=== PATIENT | female | born 1955 | race Caucasian/White ===

== ENCOUNTER 2016-09-11 21:10 | Inpatient (IN) | payer MEDICARE, OTHER ==
[~2016-09-11] VITALS: Ht 170.2 cm; Wt 79.4 kg
[~2016-09-11 21:10] MED LIST: IBUP800T23 PO
[2016-09-11 21:16] VITALS: BP 122/66; PULSE 90; RESP 22; TEMP 98.2; O2SAT 97
[2016-09-11 21:23] VITALS: BP 122/66; PULSE 82; RESP 22; TEMP 98.2; O2SAT 99
--- NOTE | 2016-09-11 21:26 | PD ---
HPI Chief Complaint: Hip Injury Time Seen by Provider: 21:21 Travel History International Travel<30 days: No Contact w/Intl Traveler<30days: No Traveled to known affect area: No History of Present Illness HPI The patient is a 60 year old female who presents to the [facility] emergency department with a history of reportedly slipping and falling on would laminate walking out of her office prior to arrival. The patient reports that she landed on her left leg and heard a pop. She reports that she was not able to get up. She reports the pain is a 10 out of 10 in severity. The patient arrives by ambulance services. No IV access was able to be obtained prior to arrival. The patient reports having an allergy to morphine. The patient denies hitting her head or losing consciousness. She denies having any headache or neck pain currently. She denies having any numbness or tingling to her extremities. She reports that her only pain is in the left leg. She reports that the left hip down to the knee are painful. She denies any prior surgery on her left hip or left femur. On review of systems, the patient denies any recent fevers, cough, congestion, neck pain, chest pain, shortness of breath, abdominal pain, vomiting, diarrhea, urinary symptoms, or neurologic symptoms. [facility] Past Medical History Narrative Medical The patient's past medical history is significant for pelvic cancer status post complete hysterectomy and radiation therapy that she completed in 2016, history of COPD. Respiratory: Yes (COPD, restrictive lung disease) Past Surgical History Narrative Surgical The patient's past surgical history is significant for 2 prior C-sections, cholecystectomy, appendectomy, vaginal surgery related to her pelvic cancer, and complete hysterectomy. Hysterectomy: Yes Social History Alcohol Use: No Tobacco Use: No Substance Use: No Allergies-Medications (Allergen,Severity, Reaction): Coded Allergies: Morphine (Verified Allergy, Severe, cardiac arrest, 11/25/15) Penicillin (Verified Allergy, Intermediate, asthma attack, hives, 11/25/15) Aspirin (Verified Allergy, Mild, hives, 11/25/15) Iodine (Verified Allergy, Mild, rash, 11/25/15) Reported Meds & Prescriptions Reported Meds & Active Scripts Active Reported [Vitamelts Multi] 2 Tab SL BID Montelukast (Montelukast Sodium) 5 Mg Chew 5 Mg CHEW HS Duoneb (Ipratropium-Albuterol Neb) 0.5-2.5 Mg/3 Ml Neb 1 Nebule INH Q4HR NEB PRN Drisdol (Ergocalciferol) 50,000 Unit Cap 50,000 Units PO Q7D ON SUNDAYS Cyanocobalamin Inj (Cyanocobalamin) 1,000 Mcg/Ml Inj 1,000 Mcg SQ Q30D Calcium Gummies ([place]uf[place]oo-Jndrindpbz-Ybrhzhl D) 250-100-500 Mg-Unit Chew 2 Ea CHEW HS Review of Systems Except as stated in HPI: all other systems reviewed are Neg General / Constitutional: No: Fever Eyes: No: Visual changes HENT: No: Headaches Cardiovascular: No: Chest Pain or Discomfort Respiratory: No: Shortness of Breath Gastrointestinal: No: Nausea, Vomiting, Diarrhea, Abdominal Pain Genitourinary: No: Dysuria Musculoskeletal: Positive: Arthralgias, Limited ROM, Pain Skin: No Rash Neurologic: No: Weakness, Focal Abnormalities, Headache, Change in Mentation, Slurred Speech, Sensory Disturbance Psychiatric: No: Depression Endocrine: No: Polydipsia Hematologic/Lymphatic: No: Easy Bruising Physical Exam Narrative General: The patient is a well-developed well-nourished female, uncomfortable appearing on arrival, intermittently holding the left leg/left hip. Head and Neck exam: Head is normocephalic atraumatic. Eyes: EOMI, pupils are equal round and reactive to light. Nose: Midline septum with pink mucous membranes Mouth: Dentition unremarkable. Moist mucus membranes. Posterior oropharynx is not erythematous. No tonsillar hypertrophy. Uvula midline. Airway patent. Neck: No palpable lymphadenopathy. No nuchal rigidity. No thyromegaly. Cardiovascular: Regular rate and rhythm without murmurs, gallops, or rubs. Lungs: Clear to auscultation bilaterally. No wheezes, rhonchi, or rales. Abdomen: Soft, without tenderness to palpation in all 4 quadrants of the abdomen. No guarding, rebound, or rigidity. Normal bowel sounds are audible. No tenderness on palpation of McBurney's point. Extremities: No clubbing, cyanosis, or edema. 2+ pulses in all 4 extremities. No calf tenderness on palpation bilaterally. The area of interest is the left hip, left femur area. The patient has her left hip slightly internally rotated. It is difficult to identify shortening of the patient's right leg is flexed to take pressure off of the left leg. The patient has tenderness on palpation along the left groin. The patient has no tenderness on palpation of the knee, tib-fib, or left ankle. The patient reports that the pain is radiating down from the left hip into the left femur. Back: No costovertebral angle tenderness to palpation. Neurologic Exam: Grossly nonfocal. Skin Exam: No rash noted. Intact skin that is warm and dry. Data Data Last Documented VS Vital Signs Date Time Temp Pulse Resp B/P Pulse Ox O2 Delivery O2 Flow Rate FiO2 09/11/16 21:29 99 2 09/11/16 21:23 98.2 82 22 122/66 Room Air Orders Femur (Ap & Lat/2vws) (09/11/16 21:18) Hip, Uni(Ap&Lat) W Ap Pelvis (09/11/16 21:18) Electrocardiogram (09/11/16 21:18) Complete Blood Count With Diff (09/11/16 21:18) Comprehensive Metabolic Panel (09/11/16 21:18) Prothrombin Time / Inr (Pt) (09/11/16 21:18) Act Partial Throm Time (Ptt) (09/11/16 21:18) Urinalysis - C+S If Indicated (09/11/16 21:18) Chest, Single Ap (09/11/16 21:18) Iv Access Insert/Monitor (09/11/16 21:18) Ecg Monitoring (09/11/16 21:18) Oximetry (09/11/16 21:18) Urinary Catheter Insert/Apply (09/11/16 21:18) Type And Screen (09/11/16 21:18) Sodium Chlorid 0.9% 500 Ml Inj (Ns 500 M (09/11/16 21:45) Hydromorphone Pf Inj (Dilaudid Pf Inj) (09/11/16 21:45) Ondansetron Inj (Zofran Inj) (09/11/16 21:45) Admit To Inpatient (09/11/16 ) Vital Signs (Adult) Q4H (09/11/16 23:03) Activity Bed Rest (09/11/16 23:03) Diet Npo (09/12/16 Breakfast) Sodium Chloride 0.9% Flush (Ns Flush) (09/11/16 23:15) Sodium Chloride 0.9% Flush (Ns Flush) (09/12/16 09:00) Basic Metabolic Panel (Bmp) (09/12/16 06:00) Complete Blood Count With Diff (09/12/16 06:00) Case Management Consult (09/11/16 23:03) Naloxone Inj (Narcan Inj) (09/11/16 23:15) Inpatient Certification (09/11/16 ) Electrocardiogram (09/11/16 23:04) B-Type Natriuretic Peptide (09/11/16 23:04) Hydromorphone Pf Inj (Dilaudid Pf Inj) (09/11/16 23:15) Admit Order (Ed Use Only) (09/11/16 23:05) Consult Orthopedic (09/11/16 ) Ckmb (Isoenzyme) Profile (09/11/16 22:00) Troponin I (09/11/16 22:00) CKMB (09/11/16 22:00) CKMB% (09/11/16 22:00) Labs Laboratory Tests Test 09/11/16 09/11/16 22:00 22:10 Prothrombin Time 10.2 SEC Prothromb Time International 0.9 RATIO Ratio Activated Partial 24.9 SEC Thromboplast Time Sodium Level 144 MEQ/L Potassium Level 4.3 MEQ/L Chloride Level 109 MEQ/L Carbon Dioxide Level 30.1 MEQ/L Blood Urea Nitrogen 28 MG/DL Creatinine 1.04 MG/DL Random Glucose 97 MG/DL Calcium Level 8.4 MG/DL Total Bilirubin 0.2 MG/DL Aspartate Amino Transf 26 U/L (AST/SGOT) Alanine Aminotransferase 25 U/L (ALT/SGPT) Alkaline Phosphatase 52 U/L Total Protein 6.7 GM/DL Albumin 3.5 GM/DL Anion Gap 5 MEQ/L Estimat Glomerular Filtration 54 ML/MIN Rate Total Creatine Kinase 119 U/L Creatine Kinase MB 2.4 NG/ML Troponin I LESS THAN 0.02 NG/ML Blood Type AB POSITIVE Antibody Screen NEGATIVE Blood Bank Comment Urine Color YELLOW Urine Turbidity CLEAR Urine pH 5.5 Urine Specific [place] 1.025 Urine Protein NEG mg/dL Urine Glucose (UA) NEG mg/dL Urine Ketones NEG mg/dL Urine Occult Blood NEG Urine Nitrite NEG Urine Bilirubin NEG Urine Urobilinogen LESS THAN 2.0 MG/DL Urine Leukocyte Esterase NEG Urine RBC 1 /hpf Urine WBC LESS THAN 1 /hpf Urine Bacteria RARE /hpf Urine Mucus FEW /lpf Microscopic Urinalysis Comment CULT NOT INDICATED MDM Medical Decision Making Medical Screen Exam Complete: Yes Emergency Medical Condition: Yes Medical Record Reviewed: Yes Interpretation(s) Last Impressions Hip and Pelvis X-Ray 09/11/162117 Signed Impressions: Service Date/Time: Sunday, September 11, 2016 21:32 - CONCLUSION: Mildly displaced, comminuted and impacted subcapital fracture of the left femoral neck. Ravinder Boone MD Femur X-Ray 09/11/162117 Signed Impressions: Service Date/Time: Sunday, September 11, 2016 21:36 - CONCLUSION: Subcapital fracture of the left femur with mild impaction and lateral displacement. The remainder of the left femur is intact. Ravinder Boone MD Chest X-Ray 09/11/162117 Signed Impressions: Service Date/Time: Sunday, September 11, 2016 21:32 - CONCLUSION: No acute cardiopulmonary disease demonstrated. Ravinder Boone MD Differential Diagnosis Left hip fracture, versus left hip dislocation, versus femur fracture, versus pelvis fracture Narrative Course During the course of the patients emergency department visit, the patients history, examination, and differential diagnosis were reviewed with the patient. The patient had IV access obtained and blood work sent for analysis. The patient was placed on a court recording monitor with oximetry and blood pressure monitoring. An EKG was ordered. A left hip x-ray, pelvis x-ray, left femur x- ray was ordered along with a chest x-ray in anticipation for the patient being cleared for surgery. The patient was typed and screened for blood. The patient had an EKG done on arrival that shows a sinus rhythm heart rate is 76, no acute ST segment elevation or depression, T waves inverted in V1. The patient was initially provided normal saline IV fluids, hydromorphone IV for pain and she reports that she has been able to tolerate this previously, Zofran 4 mg IV for nausea. The patients laboratory studies were reviewed and remarkable for cbc that is unremarkable, cmp with a bun 28, cr 1.04, cardiac enzymes wnl, bun 24. pt 10.2, ptt 24.9, urinalysis unremarkable Radiology studies were reviewed and remarkable for left subcapital femoral neck fx, chest xray unremarkable. While the patient was being observed in the emergency department and awaiting initial laboratory studies the patient acutely complained of chest pain/ pressure. An EKG was done, cardiac enzymes were sent. The patient's repeat EKG shows a sinus rhythm with a sinus arrhythmia heart rate of [address] segment elevation or depression, T waves inverted in V1. The patients results were discussed with the patient, including the plan of care. I explained that further testing and/ or monitoring is indicated based on the patients history, examination, and/ or laboratory findings. Therefore, I recommended admission for additional evaluation. The patient expressed understanding and was agreeable with this plan. The patient was admitted to the hospital in stable condition and sent to a bed under the care of the [facility]. Physician Communication Physician Communication The patient's case was discussed with Chava, the physician department assistant for Dr. Palomino who did agree to see the patient in consultation. The patient's case was discussed with Dr. Red who did agree to admit the patient for further evaluation and treatment at this time. Diagnosis Primary Impression: Closed left hip fracture Qualified Code: S72.002A - Closed left hip fracture, initial encounter Admitting Information Admitting Physician Requests: Admit Scripts Rivaroxaban (Xarelto)10 Mg Tab10 Mg PO DAILY #14 TAB Ref 0 Prov:Zay Antoine Jr. 09/12/16 Calcium Carbonate-Cholecalciferol (Calcium 600+D)600-800 Mg-Unit Tab1 Tab PO BID #60 TAB Ref 2 Prov:Zay Antoine Jr. 09/12/16 Ergocalciferol 50,000 Unit Cap50,000 Units PO Q7D #7 CAP Ref 0 Prov:Zay Antoine Jr. 09/12/16 Hydrocodone-Acetaminophen ([place])7.5-325 mg Tab1 Tab PO Q4H PRN (PAIN) #60 TAB Ref 0 Prov:Zay Antoine Jr. 09/12/16 Alee Lowe MD September 11, 2016 21:26
[2016-09-11 21:29] VITALS: O2SAT 99
[2016-09-11] MEDS ORDERED: ONDANSETRON HCL 4 MG/2 ML VIAL IV PUSH ONE (21:45)
[2016-09-11] MEDS ORDERED: HYDROmorphone HCL PF 1 MG/ML VIAL IV PUSH ONE (21:45)
[2016-09-11] MEDS ORDERED: SODIUM CHLORID 0.9% 500 ML INJ 500 ML IV ONE (21:45)
--- NOTE | 2016-09-11 22:01 | RADRPT ---
EXAM DATE/TIME: 09/11/2016 21:32 [facility] COMPARISON: No previous studies available for comparison. INDICATIONS : Chest pain after fall. MEDICAL HISTORY : None. SURGICAL HISTORY : Appendectomy. Cholecystectomy. ENCOUNTER: Initial ACUITY: 1 day PAIN SCORE: 10/10 LOCATION: Bilateral chest. FINDINGS: A single view of the chest demonstrates the lungs to be symmetrically aerated without evidence of mas s, infiltrate or effusion. The cardiomediastinal contours are unremarkable. Osseous structures are intact. Age-indeterminate but presumably chronic elevation and/or eventration seen of the right hemidiaphragm . Apparent surgery of the stomach and previous cholecystectomy. CONCLUSION: No acute cardiopulmonary disease demonstrated. Ravinder Boone MD on September 11, 2016 at 21:58 Board Certified Radiologist. This report was verified electronically.
--- NOTE | 2016-09-11 22:02 | RADRPT ---
EXAM DATE/TIME: 09/11/2016 21:32 [facility] COMPARISON: No previous studies available for comparison. INDICATIONS : Left hip pain after fall. MEDICAL HISTORY : None. SURGICAL HISTORY : None. ENCOUNTER: Initial ACUITY: 1 day PAIN SCORE: 10/10 LOCATION: Left hip. FINDINGS: There is a mildly comminuted and mildly impacted subcapital fracture of the left femur. Femoral head remains intact. No subluxation. The bony pelvis is intact. CONCLUSION: Mildly displaced, comminuted and impacted subcapital fracture of the left femoral neck. Ravinder Boone MD on September 11, 2016 at 21:59 Board Certified Radiologist. This report was verified electronically.
--- NOTE | 2016-09-11 22:03 | RADRPT ---
EXAM DATE/TIME: 09/11/2016 21:36 [facility] COMPARISON: No previous studies available for comparison. INDICATIONS : Left femur pain after fall. MEDICAL HISTORY : None. SURGICAL HISTORY : None. ENCOUNTER: Initial ACUITY: 1 day PAIN SCORE: 10/10 LOCATION: Left proximal femur. FINDINGS: There is a left femoral neck fracture with mild impaction and lateral displacement. The femoral head is intact. The rest of the femur is intact. CONCLUSION: Subcapital fracture of the left femur with mild impaction and lateral displacement. The remainder of the left femur is intact. Ravinder Boone MD on September 11, 2016 at 22:01 Board Certified Radiologist. This report was verified electronically.
[2016-09-11] MEDS ORDERED: CYAN1000P SQ (22:43)
[2016-09-11] MEDS ORDERED: IPRASOL INH (22:43)
[2016-09-11] MEDS ORDERED: DRIS50002 PO (22:43)
[2016-09-11] MEDS ORDERED: CALCCHW23 CHEW (22:43)
[2016-09-11] MEDS ORDERED: [UNRECOGNIZED DRUG - CODE] SL (22:43)
[2016-09-11] MEDS ORDERED: MONT10TA4 PO (22:43)
[2016-09-11] MEDS ORDERED: [UNRECOGNIZED DRUG - OTHER] SL (22:49)
[2016-09-11] MEDS ORDERED: MONT5CHW5 CHEW (22:49)
[2016-09-11 23:07] LABS: ALKALINE PHOSPHATASE 52 U/L (45-117); APTT (PATIENT) 24.9 SEC (24.3-30.1); INTERNATIONAL NORMALIZED RATIO 0.9 RATIO; PROTHROMBIN TIME - PATIENT 10.2 SEC (9.8-11.6); TOTAL BILIRUBIN ADULT 0.2 MG/DL (0.2-1.0)
[2016-09-11 23:10] LABS: ALT (GPT) 25 U/L (10-53); ANION GAP 5 MEQ/L (5-15); AST (GOT) 26 U/L (15-37); BICARBONATE 30.1 MEQ/L (21.0-32.0); BLOOD UREA NITROGEN 28 MG/DL (7-18); CHLORIDE 109 MEQ/L (98-107); GLOMERULAR FILTRATION RATE 54 ML/MIN (>89); POTASSIUM 4.3 MEQ/L (3.5-5.1); SODIUM (NA) 144 MEQ/L (136-145)
[2016-09-11] MEDS ORDERED: NALOXONE HCL 0.4 MG/ML AMP IV PRN (23:15)
[2016-09-11] MEDS ORDERED: SODIUM CHLORIDE 0.9% FLUSH 10 ML FLUSH IV FLUSH PRN (23:15)
[2016-09-11 23:33] VITALS: BP 136/67; PULSE 67; RESP 16; O2SAT 99
[2016-09-11 23:35] LABS: AUTOMATED NEUTROPHIL # 6.7 TH/MM3 (1.8-7.7); BASOPHIL % 0.3 % (0.0-2.0); EOSINOPHIL # 0.1 TH/MM3 (0-0.4); EOSINOPHIL % 0.7 % (0.0-4.0); HEMATOCRIT 36.5 % (35.0-46.0); HEMO FLAGS DIFF FINAL; LYMPH % 18.8 % (9.0-44.0); LYMPHOCYTE # 1.7 TH/MM3 (1.0-4.8); MEAN CELL VOLUME 83.3 FL (80.0-100.0); MEAN CORPUSCULAR HEMOGLOBIN 27.8 PG (27.0-34.0); MEAN CORPUSCULAR HGB CONC 33.4 % (32.0-36.0); MONO % 4.2 % (0.0-8.0); PLATELET COUNT 219 TH/MM3 (150-450); RED BLOOD COUNT 4.39 MIL/MM3 (4.00-5.30); RED CELL DISTRIBUTION WIDTH 13.5 % (11.6-17.2); WHITE BLOOD COUNT 8.9 TH/MM3 (4.0-11.0)
[2016-09-11 23:49] LABS: CREATINE KINASE 119 U/L (26-192)
--- NOTE | 2016-09-11 23:49 | HHI.HP ---
HPI Service [facility] Primary Care Physician Maged Perkins MD Admission Diagnosis Left hip subcapital femoral neck fx s/p fall Diagnoses: Chief Complaint: Fell down Travel History International Travel<30 Days: No Contact w/Intl Traveler <30 Da: No Traveled to Known Affected Are: No History of Present Illness History and patient, ER physician for medication, and review of medical records. Patient reported that she was walking on a limited floor and fell onto her left hip. She denies any premonitory symptoms prior to the fall such as chest pain/ palpitations/dizziness/focal weakness. She denies hitting her head. Denies loss of consciousness. Denies being on blood thinners. She does not remember the last time she had a fall. She usually doesn't fall at all. In the emergency room, patient's imaging studies revealed left femoral neck fracture. Patient denies any recent fevers/nausea/vomiting/diarrhea. Denies any hematemesis/hematochezia/melena/hematuria. She denies any significant medical history apart from COPD/restrictive lung disease and history of uterine cancer which has become recurrent with ongoing treatment. Has been in remission for past 1 year. 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 With surgical removal in 2010 and 2014, radiation therapy. Last dose of radiation was July 2015 Past Surgical History Hysterectomy with bilateral oophorectomy Cholecystectomy Appendectomy 2 Surgical removal of recurrent uterine/pelvic cancerin 2010 and 2014 Reported Medications Patient's medications listed on EMRreviewed. 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 Allergies: Coded Allergies: Morphine (Verified Allergy, Severe, cardiac arrest, 11/25/15) Penicillin (Verified Allergy, Intermediate, asthma attack, hives, 11/25/15) Aspirin (Verified Allergy, Mild, hives, 11/25/15) Iodine (Verified Allergy, Mild, rash, 11/25/15) Family History Father with history of CHF Social History Denies smoking/alcohol abuse/drug abuse Physical Exam Vital Signs Vital Signs Date Time Temp Pulse Resp B/P Pulse Ox O2 Delivery O2 Flow Rate FiO2 09/11/16 23:33 67 16 136/67 99 Nasal Cannula 2 09/11/16 21:29 99 2 09/11/16 21:23 98.2 82 22 122/66 99 Room Air 2 09/11/16 21:23 99 Nasal Cannula 2 09/11/16 21:16 98.2 90 22 122/66 97 Physical Exam GENERAL: This is a well-nourished, well-developed patient, in mild distress from pain SKIN: No rashes, ecchymoses or lesions. Cool and dry. HEAD: Atraumatic. Normocephalic. No temporal or scalp tenderness. EYES: . No scleral icterus. No injection or drainage. ENT: Nose without bleeding, purulent drainage or septal hematoma. Airway patent. NECK: Trachea midline. No JVD CARDIOVASCULAR: Regular rate and rhythm without murmurs, gallops, or rubs. RESPIRATORY: Clear to auscultation. Breath sounds equal bilaterally. No wheezes , rales, or rhonchi. GASTROINTESTINAL: Abdomen soft, non-tender, nondistended. No guarding. MUSCULOSKELETAL: Extremities without clubbing, cyanosis, or edema. No calf tenderness. Left lower extremity in a flexed position with some internal rotation. Good peripheral pulses at dorsalis pedis. NEUROLOGICAL: Awake and alert. Normal speech. Laboratory Laboratory Tests Test 09/11/16 09/11/16 22:00 23:20 Prothrombin Time 10.2 Prothromb Time International 0.9 Ratio Activated Partial 24.9 Thromboplast Time Sodium Level 144 Potassium Level 4.3 Chloride Level 109 Carbon Dioxide Level 30.1 Anion Gap 5 Blood Urea Nitrogen 28 Creatinine 1.04 Estimat Glomerular Filtration 54 Rate Random Glucose 97 Calcium Level 8.4 Total Bilirubin 0.2 Aspartate Amino Transf 26 (AST/SGOT) Alanine Aminotransferase 25 (ALT/SGPT) Alkaline Phosphatase 52 Total Protein 6.7 Albumin 3.5 White Blood Count 8.9 Red Blood Count 4.39 Hemoglobin 12.2 Hematocrit 36.5 Mean Corpuscular Volume 83.3 Mean Corpuscular Hemoglobin 27.8 Mean Corpuscular Hemoglobin 33.4 Concent Red Cell Distribution Width 13.5 Platelet Count 219 Mean Platelet Volume 8.0 Neutrophils (%) (Auto) 76.0 Lymphocytes (%) (Auto) 18.8 Monocytes (%) (Auto) 4.2 Eosinophils (%) (Auto) 0.7 Basophils (%) (Auto) 0.3 Neutrophils # (Auto) 6.7 Lymphocytes # (Auto) 1.7 Monocytes # (Auto) 0.4 Eosinophils # (Auto) 0.1 Basophils # (Auto) 0.0 CBC Comment DIFF FINAL Differential Comment Result Diagram: 09/11/160 09/11/162199 Imaging Last 48 hours Impressions Hip and Pelvis X-Ray 09/11/162117 Signed Impressions: Service Date/Time: Sunday, September 11, 2016 21:32 - CONCLUSION: Mildly displaced, comminuted and impacted subcapital fracture of the left femoral neck. Ravinder Boone MD Femur X-Ray 09/11/162117 Signed Impressions: Service Date/Time: Sunday, September 11, 2016 21:36 - CONCLUSION: Subcapital fracture of the left femur with mild impaction and lateral displacement. The remainder of the left femur is intact. Ravinder Boone MD Chest X-Ray 09/11/162117 Signed Impressions: Service Date/Time: Sunday, September 11, 2016 21:32 - CONCLUSION: No acute cardiopulmonary disease demonstrated. Ravinder Boone MD Assessment and Plan Problem List: (1) Closed left hip fracture ICD Code: S72.002A Status: Acute Assessment and Plan Impression: Status post fall Left subcapital femoral neck fracture secondary to fall Renal insufficiencyGFR 54. Acute versus chronic. 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 With surgical removal in 2010 and 2014, radiation therapy. Last dose of radiation was July 2015 Plan: Patient's case was discussed with orthopedics PA on-call by ER physician. Nothing by mouth past midnight. Pain control. Resume home meds. DVT prophylaxisto start postoperatively with chemical prophylaxis. Discussed Condition With Patient, her son at the bedside, ER physician Physician Certification 2 Midnight Certification Type: Admission for Inpatient Services Order for Inpatient Services The services are ordered in accordance with Medicare regulations or non- Medicare payer requirements, as applicable. In the case of services not specified as inpatient-only, they are appropriately provided as inpatient services in accordance with the 2-midnight benchmark. Estimated LOS (days): 3 days is the estimated time the patient will need to remain in the hospital, assuming treatment plan goals are met and no additional complications. Post-Hospital Plan: Not yet determined Problem Qualifiers (1) Closed left hip fracture: Qualified Code: S72.002A - Closed left hip fracture, initial encounter Claudio Red MD September 11, 2016 23:49
[2016-09-12] VITALS (7 sets, daily range): BP systolic 100–124; BP diastolic 55–74; PULSE 63–83; RESP 16–17; TEMP 95.7–98.5; O2SAT 92–98
[2016-09-12 00:02] LABS: CKMB 2.4 NG/ML (0.5-3.6)
[2016-09-12] MEDS ORDERED: CYCLOBENZAPRINE HCL 10 MG TAB PO PRN (00:30)
[2016-09-12] MEDS ORDERED: RESP: ALBUTEROL 2.5 MG/IPRATROPIUM 0.5 MG NEB (PRN) NEB (00:45)
[2016-09-12] MEDS: SODIUM CHLOR 0.9% 1000 ML INJ 1,000 ML IV SCH ×2 (01:00→12:14)
[2016-09-12] MEDS: HYDROmorphone HCL PF 1 MG/ML VIAL IV PUSH PRN ×2 (01:11→06:03)
[2016-09-12 01:16] LABS: BACTERIA, URINE RARE /hpf; BLOOD, URINE NEG (NEG); COMMENT (UR) CULT NOT INDICATED; CULTURE IF INDICATED CULT NOT INDICATED; GLUCOSE,URINE NEG (NEG); KETONE, URINE NEG (NEG); MUCUS URINE FEW /lpf (OCC); NITRITE,URINE NEG (NEG); PH, URINE 5.5 (5.0-8.5); URINE COLOR YELLOW (YELLW/STRAW)
--- NOTE | 2016-09-12 06:43 | PD.ORT.PN ---
Subjective Subjective Remarks s/p fall at home left hip pain Objective Vitals Vital Signs Date Time Temp Pulse Resp B/P Pulse Ox O2 Delivery O2 Flow Rate FiO2 09/12/16 03:00 98.5 69 104/70 96 09/12/16 00:36 98.1 83 112/67 98 09/11/16 23:33 67 16 136/67 99 Nasal Cannula 2 09/11/16 21:29 99 2 09/11/16 21:23 98.2 82 22 122/66 99 Room Air 2 09/11/16 21:23 99 Nasal Cannula 2 09/11/16 21:16 98.2 90 22 122/66 97 I/O 09/11/16 09/11/16 09/11/16 09/12/16 09/12/16 09/12/16 07:00 15:00 23:00 07:00 15:00 23:00 Intake Total 504 ml Output Total 1150 ml Balance -646 ml Intake Oral 0 ml IV Total 504 ml Output Urine Total 1150 ml Result Diagram: 09/11/16 2320 09/11/16 2200 Other Results Laboratory Tests Test 09/11/16 22:00 Prothrombin Time 10.2 SEC (9.8-11.6) Prothromb Time International 0.9 RATIO Ratio Imaging Last 24 hours Impressions Hip and Pelvis X-Ray 09/11/162117 Signed Impressions: Service Date/Time: Sunday, September 11, 2016 21:32 - CONCLUSION: Mildly displaced, comminuted and impacted subcapital fracture of the left femoral neck. Ravinder Boone MD Femur X-Ray 09/11/162117 Signed Impressions: Service Date/Time: Sunday, September 11, 2016 21:36 - CONCLUSION: Subcapital fracture of the left femur with mild impaction and lateral displacement. The remainder of the left femur is intact. Ravinder Boone MD Chest X-Ray 09/11/162117 Signed Impressions: Service Date/Time: Sunday, September 11, 2016 21:32 - CONCLUSION: No acute cardiopulmonary disease demonstrated. Ravinder Boone MD Objective Remarks LLE: pain in hip with motion. NVI Assessment & Plan Assessment and Plan 1) Left Femoral Neck Fx -consents -surgery today Mike Murcia September 12, 2016 06:43
[2016-09-12 06:48] LABS: AUTOMATED NEUTROPHIL # 5.2 TH/MM3 (1.8-7.7); BASOPHIL % 0.2 % (0.0-2.0); EOSINOPHIL % 0.5 % (0.0-4.0); HEMATOCRIT 37.9 % (35.0-46.0); HEMO FLAGS DIFF FINAL; LYMPH % 25.5 % (9.0-44.0); MEAN CELL VOLUME 83.7 FL (80.0-100.0); MEAN CORPUSCULAR HEMOGLOBIN 28.1 PG (27.0-34.0); MEAN CORPUSCULAR HGB CONC 33.6 % (32.0-36.0); MONO % 6.9 % (0.0-8.0); NEUT % 66.9 % (16.0-70.0); PLATELET COUNT 215 TH/MM3 (150-450); RED BLOOD COUNT 4.53 MIL/MM3 (4.00-5.30); RED CELL DISTRIBUTION WIDTH 13.4 % (11.6-17.2); WHITE BLOOD COUNT 7.7 TH/MM3 (4.0-11.0)
[2016-09-12] MEDS ORDERED: ACETAMINOPHEN 1000 MG/100 ML VIAL IV ONE (06:57)
[2016-09-12] MEDS ORDERED: MORPHINE SULFATE 4 MG/ML INJ ONE (06:57)
[2016-09-12] MEDS ORDERED: fentaNYL CITRATE 250 MCG/5 ML AMP ONE (06:57)
[2016-09-12 07:24] LABS: BICARBONATE 29.7 MEQ/L (21.0-32.0); POTASSIUM 3.7 MEQ/L (3.5-5.1)
[2016-09-12] MEDS ORDERED: GENTAMICIN SULFATE 80 MG/2 ML VIAL ONE (08:26)
[2016-09-12] MEDS ORDERED: VANCOMYCIN HCL 1000 MG VIAL ONE ×2 (08:27→09:01)
[2016-09-12] MEDS ORDERED: SODIUM CHLORIDE 0.9% FLUSH 10 ML FLUSH IV FLUSH SCH (09:00)
[2016-09-12] MEDS ORDERED: CLINDAMYCIN PHOS 600 MG/4 ML VIAL ONE (09:01)
[2016-09-12] MEDS ORDERED: SODIUM CHLORIDE 0.9% IV SCH (10:00)
[2016-09-12] MEDS ORDERED: TRANEXAMIC ACID IV SCH (10:00)
--- NOTE | 2016-09-12 10:06 | PD.OP ---
cc: Andi Palomino MD Operative Report Date of Surgery: September 12, 2016 Preoperative Diagnosis: Displaced left femoral neck fracture Postoperative Diagnosis: Same Procedure: Left hip david-arthroplasty Anesthesia: Gen. Surgeon: Andi Palomino [employer](s): LORI Krause PA-C The surgical procedure was assisted by my physician assistant director of public works. My P.A. presence was necessary throughout this case for the manipulation and positioning of the surgical extremity. My P.A. was assisting me throughout the duration of this procedure. The skill set of a physician assistant director of public works was medically necessary to complete this procedure. During the surgical case the surgical manager was working at the back table and the physician assistant director of public works was directly assisting me. Operation and Findings: PLAN OF ACTIVITY Weight bear as tolerated. IMPLANTS USED DePuy Corail size [12] stem with size [45] bipolar head and [+1.5] neck. DRAIN: 7 mm [place] drain DETAILS OF PROCEDURE This patient was brought into the operating room and placed on the OR table. The patient was given anesthesia. The patient received IV antibiotics. The patient was then placed in lateral decubitus position. The hip and leg were prepped with alcohol, followed by Hibiclens and draped in a usual sterile fashion. Clean air was used for this procedure. Time out procedure was performed. The procedure began with a 5 inch incision over the posterolateral hip. The subcutaneous tissue was dissected with the Bovie. The iliotibial band were split in line with fibers. The Charnley retractor was placed. The piriformis and external rotators were released from the femur and tagged with a #1 Vicryl suture. The capsule is now incised and tagged with #1 Vicryl. The femoral neck fracture was now visualized. A corkscrew was now used to remove the femoral head. The femoral head was sized and measured. Soft tissue was now protected. The hip skid was placed underneath the femoral neck. An oscillating saw was used to make a femoral neck cut. At this point attention was turned to preparation of the proximal femur. At this point it was noted that there was a small fracture extending from the calcar towards the lesser trochanter. Decision was made to place a prophylactic cable. Using the Synthes cable system a cable was wrapped around the proximal femur. Care was taken to avoid injury to neurovascular structures. The cable was partially tensioned. Next, A box osteotome was used to remove the lateral cortex of the femoral neck. The T-handle reamer was used to open the femoral canal. Next, the canal was broached. A lateralizing reamer was used to help lateralize the prosthesis. At this point a trial head and neck were placed. The hip was reduced. The patient was found to have excellent stability with good range of motion. Trial components were removed. Soft tissue and bone were thoroughly irrigated. A Corail stem was now opened. The stem was now impacted into the proximal femur. Care was taken to keep appropriate anteversion. The head and neck were now impacted onto the stem. The hip was again reduced. The hip was found to have good range of motion and good stability. Leg lengths were clinically equal. The cable was now fully tensioned , crimped, and cut at this time. The wound was thoroughly irrigated. The capsule, piriformis and iliotibial band were closed with #1 Vicryl. Subcutaneous tissue was closed with 3-0 Vicryl. The skin was closed with hu. A sterile dressing was applied with Primapore. The patient was placed into a knee immobilizer. The patient was awakened and transferred to the recovery room in stable condition. Needle and sponge counts were correct. Andi Palomino MD September 12, 2016 10:06
[2016-09-12] MEDS ORDERED: Post-op Orders (for Pharmacy) MISC XX ONE (10:15)
[2016-09-12] MEDS ORDERED: SODIUM CHLORIDE 0.9% FLUSH 5 ML FLUSH IVF PRN (10:15)
[2016-09-12] MEDS ORDERED: ACETAMINOPHEN/HYDROcodone 325 MG/7.5 MG TAB PO PRN (10:15)
[2016-09-12] MEDS ORDERED: MORPHINE SULFATE 4 MG/ML INJ IV PUSH PRN (10:15)
--- NOTE | 2016-09-12 10:24 | MB ---
cc: JARRED KNIGHT DATE OF CONSULTATION 09/12/2016 REASON FOR CONSULTATION Left femoral neck fracture CONSULTING PHYSICIAN Dr. Red MARILUZ Encarnacion is a 60-year-old female who has multiple medical problems. She has a history of COPD and restrictive airway disease. She also has a history of uterine cancer. She was at home when she fell. She landed on her left hip. She had immediate left hip pain. She denies dizziness or syncope. Pain is worse with movement and is improved with rest. She presented to the emergency room where x-rays revealed a left femoral neck fracture. She is currently awake and alert. Her only complaint is her left hip. Pain is worse with movement. She denies any pain in her hip prior to her fall. She has a very limited ability to walk secondary to airway disease. She states that she is unable to walk one block. PAST MEDICAL HISTORY ILLNESSES 1. COPD 2. Uterine cancer SURGERIES 1. Hysterectomy 2. Oophorectomy 3. Cholecystectomy 4. Appendectomy 5. MEDICATIONS Please see EMR for a complete list of the inpatient medications. This was reviewed. ALLERGIES INCLUDE MORPHINE, PENICILLIN, ASPIRIN, IODINE. FAMILY HISTORY Positive for CHF in her father. SOCIAL HISTORY The patient denies alcohol, tobacco or drug use. REVIEW OF SYSTEMS The patient denies headache, visual changes, neck pain, chest pain, shortness of breath, abdominal pain, nausea, vomiting or recent weight loss. She has chronic shortness of breath with exertion. She denies shortness of breath at rest. She has left hip pain. PHYSICAL EXAMINATION The patient is a well-developed, well-nourished 60-year female in no acute distress. She is awake and alert. She is alert x3. VITAL SIGNS: Temperature 98.2, pulse 78, respirations 16, blood pressure 124/74, O2 sat is 98% on two liters nasal cannula. HEAD: The patient is normocephalic. EYES: Pupils are equal. NECK: Soft and nontender. Trachea is midline. ABDOMEN: Soft, nontender, nondistended. EXTREMITIES: Examination of bilateral upper extremities reveals no pain with shoulder, elbow or wrist motion. She has intact sensation in all fingers. She has good cap refill in all fingers. Skin is intact in both hands. Radial pulses are palpable. Examination of the right leg reveals no pain with hip, knee or ankle motion. Skin is intact. Dorsalis pedis pulses palpable. Examination of the left leg reveals pain with any hip motion. She has no stress on her knee, tibia or ankle. Skin is intact. Dorsalis pedis pulses palpable. Sensation is intact throughout the left foot. X-RAYS X-rays of the left hip were reviewed. X-rays reveal a displaced left femoral neck fracture. IMPRESSION 1. Displaced left femoral neck fracture. 2. COPD 3. History of uterine cancer. PLAN Treatment options were discussed with the patient. At this point, I would recommend left hip hemiarthroplasty. I discussed with her total hip arthroplasty versus hemiarthroplasty. The patient is very sedentary because of restrictive airway disease. I explained to her that a total hip arthroplasty would have a higher complication rate. Given her sedentary lifestyle, I feel that an hemiarthroplasty would be her best option. The risks of surgery including bleeding, infection, injury to arteries, nerves and blood vessels, fractured femur, hip dislocation, leg length discrepancy, as well as medical complications including blood clot, stroke, heart attack and were discussed. All questions were answered. I will plan on surgery today. A mid-level provider in my office, nurse practitioner or PA, may see this patient on a follow-up basis and continue to implement the objective of this plan including: Starting or adjusting medications, injections of muscle, tendon, bursa or joints, cast application, orthotic or brace application, physical therapy, further radiographic studies including x-ray, MRI, CT, ultrasounds or bone scan, vascular studies, neurologic studies, or other specialist consultations, and proceeding with surgical management as appropriate. MD MAX Hodgson/IAM /10:00 AM /10:15 AM SHERIN
[2016-09-12] MEDS ORDERED: *HYDROmorphone PF 1 MG VIAL PERIprocedural Use ONLY ONE ×2 (11:44→12:17)
[2016-09-12] MEDS ORDERED: HYDR-3288 PO (11:45)
[2016-09-12] MEDS ORDERED: ERGO1CAP30 PO (11:45)
[2016-09-12] MEDS ORDERED: XARE10TA PO (11:45)
[2016-09-12] MEDS ORDERED: CALC1TAB37 PO (11:45)
[2016-09-12] MEDS ORDERED: WALKER WHEELS/F1 MIS (11:46)
--- NOTE | 2016-09-12 11:56 | EKG ---
Date Performed: 09/11/2016 Time Performed: 23:10:46 PTAGE: 60 years EKG: Sinus rhythm WITH SINUS ARRHYTHMIA NORMAL ECG PREVIOUS TRACING : 09/11/2016 22.17 No significant change from previous tracing noted. DOCTOR: Demarco Mo Interpretating Date/Time 09/12/2016 11:55:02
--- NOTE | 2016-09-12 11:58 | EKG ---
Date Performed: 09/11/2016 Time Performed: 22:17:27 PTAGE: 60 years EKG: Sinus rhythm NORMAL ECG NO PREVIOUS TRACING DOCTOR: Demarco Mo Interpretating Date/Time 09/12/2016 11:55:48
[2016-09-12] MEDS ORDERED: NEOSTIGMINE 3 MG/3 ML SYR IV ONE (12:00)
[2016-09-12] MEDS ORDERED: ePHEDrine/NS 25 MG/5 ML SYR IV ONE (12:00)
[2016-09-12] MEDS ORDERED: PROPOFOL 200 MG/20 ML AMP IV ONE (12:00)
[2016-09-12] MEDS ORDERED: ONDANSETRON HCL 4 MG/2 ML VIAL IV PUSH ONE (12:00)
[2016-09-12] MEDS ORDERED: LACTATED RINGER'S 1000 ML INJ 1,000 ML IV ONE ×2 (12:00)
[2016-09-12] MEDS ORDERED: ERGOCALCIFEROL (VIT D2) 50,000 UNIT CAP PO ONE (12:00)
[2016-09-12] MEDS ORDERED: *ONDANSETRON 4 MG VIAL PERIprocedural Use ONLY ONE (13:16)
--- NOTE | 2016-09-12 13:23 | RADRPT ---
EXAM DATE/TIME: 09/12/2016 13:04 [facility] COMPARISON: HIP LEFT (AP&LAT 2/3VWS) W AP PELVIS, September 11, 2016, 21:32. INDICATIONS : Post op, left hip replacement. MEDICAL HISTORY : None. SURGICAL HISTORY : None. ENCOUNTER: Initial ACUITY: 1 day PAIN SCORE: Non-responsive. LOCATION: Left hip FINDINGS: The patient is status post left hip replacement with prosthesis in good position. Stable arthritic ch anges are noted involving the right hip. No acute fracture or dislocation is noted. CONCLUSION: 1. Status post left hip replacement with prosthesis in good position. 2. Stable arthritic changes involving the right hip. 3. No acute fracture or dislocation. Morgan High MD on September 12, 2016 at 13:20 Board Certified Radiologist. This report was verified electronically.
[2016-09-12] MEDS: HYDROmorphone HCL PF 1 MG/ML VIAL IV PRN (18:35)
--- NOTE | 2016-09-12 19:41 | HHI.PR ---
Subjective Remarks Seen post op. Pain controlled. No nausea. No respiratory symptoms. Objective Vital Signs Date Time Temp Pulse Resp B/P Pulse Ox O2 Delivery O2 Flow Rate FiO2 09/12/16 17:56 92 Nasal Cannula 2.00 09/12/16 15:25 95.7 80 17 116/62 92 09/12/16 14:35 97.5 68 16 124/76 96 Nasal Cannula 2 09/12/16 14:00 70 16 121/64 96 Nasal Cannula 2 09/12/16 13:30 75 15 120/68 96 Nasal Cannula 2 09/12/16 13:00 97.5 74 15 118/65 95 Nasal Cannula 2 09/12/16 12:45 78 15 119/66 95 Nasal Cannula 2 09/12/16 12:40 14 09/12/16 12:30 86 14 126/60 100 Nasal Cannula 3 09/12/16 12:15 80 14 124/56 99 Nasal Cannula 3 09/12/16 12:14 14 09/12/16 12:00 79 13 117/58 98 Nasal Cannula 3 09/12/16 11:45 78 13 129/61 98 Nasal Cannula 3 09/12/16 11:35 97.6 85 12 132/66 100 Nasal Cannula 4 09/12/16 07:25 98.2 78 124/74 98 09/12/16 03:00 98.5 69 104/70 96 09/12/16 00:36 98.1 83 112/67 98 09/11/16 23:33 67 16 136/67 99 Nasal Cannula 2 09/11/16 21:29 99 2 09/11/16 21:23 98.2 82 22 122/66 99 Room Air 2 09/11/16 21:23 99 Nasal Cannula 2 09/11/16 21:16 98.2 90 22 122/66 97 I/O 09/11/16 09/11/16 09/11/16 09/12/16 09/12/16 09/12/16 07:00 15:00 23:00 07:00 15:00 23:00 Intake Total 504 ml 1350 ml Output Total 1150 ml 1925 ml Balance -646 ml -575 ml Intake Oral 0 ml IV Total 504 ml 150 ml Other 1200 ml Output Urine Total 1150 ml 1750 ml Drainage Total 25 ml Estimated Blood Loss 150 ml Result Diagram: 09/12/16 0429 09/12/16 0429 Objective Remarks GENERAL: NAD, Sedated (a&ox2) SKIN: Warm and dry. HEAD: Normocephalic. EYES: No scleral icterus. No injection or drainage. NECK: Supple, trachea midline. No JVD or lymphadenopathy. CARDIOVASCULAR: Regular rate and rhythm without murmurs, gallops, or rubs. RESPIRATORY: Breath sounds equal bilaterally. No accessory muscle use. GASTROINTESTINAL: Abdomen soft, non-tender, nondistended. MUSCULOSKELETAL: No cyanosis, or edema. Left leg bandaged at hip. BACK: Nontender without obvious deformity. No CVA tenderness. Medications and IVs Administered Medications Medications (Trade) Dose Ordered Sig/Danielle Route PRN Reason Start Time Stop Time Status Last Admin Dose Admin Sodium Chloride (NS 1000 ml Inj) 1,000 ml @ 84 mls/hr [id number] IV 09/12/16 00:45 09/12/16 12:14 Hydromorphone HCl (Dilaudid Pf Inj) 0.2 mg Q4H PRN IV PAIN SCALE 6 TO 10 09/12/16 13:00 09/12/16 18:35 A/P Problem List: (1) Closed left hip fracture ICD Code: S72.002A Assessment & Plan: Post op PRN pain treatments Ortho following PT planned (2) COPD (chronic obstructive pulmonary disease) ICD Code: J44.9 Assessment & Plan: Follow clinically No signs of exacerbation Problem Qualifiers (1) Closed left hip fracture: Qualified Code: S72.002A - Closed left hip fracture, initial encounter Naveed Erwin MD September 12, 2016 19:41
[2016-09-12] MEDS: SODIUM CHLORIDE 0.9% FLUSH 5 ML FLUSH IVF SCH (19:48)
[2016-09-12] MEDS: MONTELUKAST SODIUM 5 MG CHEWABLE TAB CHEW SCH (19:54)
[2016-09-12] MEDS ORDERED: VANCOMYCIN INJ 1,000 MG in SODIUM CHLOR 0.9% 250 ML INJ 250 ML IV ONE (20:00)
[2016-09-13] VITALS (7 sets, daily range): BP systolic 92–112; BP diastolic 44–58; PULSE 60–75; RESP 16–18; TEMP 97.8–99; O2SAT 95–100
[2016-09-13] MEDS: SODIUM CHLOR 0.9% 1000 ML INJ 1,000 ML IV SCH ×2 (01:24→12:30)
[2016-09-13] MEDS: HYDROmorphone HCL PF 1 MG/ML VIAL IV PRN ×2 (01:25→05:54)
[2016-09-13] MEDS: ACETAMINOPHEN/HYDROcodone 325 MG/7.5 MG TAB PO PRN ×4 (03:17→18:15)
--- NOTE | 2016-09-13 06:42 | PD.ORT.PN ---
Subjective Subjective Remarks Resting comfortably Objective Vitals Vital Signs Date Time Temp Pulse Resp B/P Pulse Ox O2 Delivery O2 Flow Rate FiO2 09/13/16 04:50 99.0 70 16 109/58 98 09/13/16 00:45 98.6 64 16 112/55 100 09/12/16 20:44 96.9 66 16 100/55 98 09/12/16 17:56 92 Nasal Cannula 2.00 09/12/16 15:25 95.7 80 17 116/62 92 09/12/16 14:35 97.5 68 16 124/76 96 Nasal Cannula 2 09/12/16 14:00 70 16 121/64 96 Nasal Cannula 2 09/12/16 13:30 75 15 120/68 96 Nasal Cannula 2 09/12/16 13:00 97.5 74 15 118/65 95 Nasal Cannula 2 09/12/16 12:45 78 15 119/66 95 Nasal Cannula 2 09/12/16 12:40 14 09/12/16 12:30 86 14 126/60 100 Nasal Cannula 3 09/12/16 12:15 80 14 124/56 99 Nasal Cannula 3 09/12/16 12:14 14 09/12/16 12:00 79 13 117/58 98 Nasal Cannula 3 09/12/16 11:45 78 13 129/61 98 Nasal Cannula 3 09/12/16 11:35 97.6 85 12 132/66 100 Nasal Cannula 4 09/12/16 07:25 98.2 78 124/74 98 I/O 09/12/16 09/12/16 09/12/16 09/13/16 09/13/16 09/13/16 07:00 15:00 23:00 07:00 15:00 23:00 Intake Total 504 ml 1350 ml 360 ml Output Total 1150 ml 1925 ml 820 ml 20 ml Balance -646 ml -575 ml -460 ml -20 ml Intake Oral 0 ml 360 ml IV Total 504 ml 150 ml Other 1200 ml Output Urine Total 1150 ml 1750 ml 800 ml Drainage Total 25 ml 20 ml 20 ml Estimated Blood Loss 150 ml # Bowel Movements 0 Result Diagram: 09/12/16 0429 09/12/16 0429 Imaging Last 24 hours Impressions Hip and Pelvis X-Ray 09/11/162117 Signed Impressions: Service Date/Time: Sunday, September 11, 2016 21:32 - CONCLUSION: Mildly displaced, comminuted and impacted subcapital fracture of the left femoral neck. Ravinder Boone MD Femur X-Ray 09/11/162117 Signed Impressions: Service Date/Time: Sunday, September 11, 2016 21:36 - CONCLUSION: Subcapital fracture of the left femur with mild impaction and lateral displacement. The remainder of the left femur is intact. Ravinder Boone MD Chest X-Ray 09/11/162117 Signed Impressions: Service Date/Time: Sunday, September 11, 2016 21:32 - CONCLUSION: No acute cardiopulmonary disease demonstrated. Ravinder Boone MD Objective Remarks Left lower extremity: Clean dry dressings intact with drain in place. Compartments soft. MARYLU hose in place. Distally neurovascularly intact Assessment & Plan Assessment and Plan Left hip hemiarthroplasty POD 1 Physical therapy weightbearing as tolerated twice a day with posterior hip precautions Knee immobilizer when in bed Daily dressing changes beginning POD 2 with removal drain Eliquis Case management for rehabilitation versus home discharge Incentive spirometry Zay Antoine Jr. September 13, 2016 06:42
[2016-09-13 07:10] LABS: MEAN CELL VOLUME 83.9 FL (80.0-100.0); MEAN CORPUSCULAR HEMOGLOBIN 27.6 PG (27.0-34.0); MEAN CORPUSCULAR HGB CONC 32.9 % (32.0-36.0); PLATELET COUNT 188 TH/MM3 (150-450); RED BLOOD COUNT 4.18 MIL/MM3 (4.00-5.30); RED CELL DISTRIBUTION WIDTH 13.4 % (11.6-17.2); REVIEW FLAG FINAL; WHITE BLOOD COUNT 7.6 TH/MM3 (4.0-11.0)
[2016-09-13 07:37] LABS: POTASSIUM 3.7 MEQ/L (3.5-5.1)
[2016-09-13] MEDS: SODIUM CHLORIDE 0.9% FLUSH 5 ML FLUSH IVF SCH ×2 (09:00→21:00)
[2016-09-13] MEDS: CHOLECALCIFEROL (VIT D3) 5000 UNIT CAP PO SCH (09:13)
[2016-09-13] MEDS: ENOXAPARIN SODIUM 30 MG/0.3 ML SYRINGE SQ SCH (09:15)
--- NOTE | 2016-09-13 10:58 | HHI.PR ---
Subjective Remarks Pain episode overnight after missing a dose of treatment. Doing well this morning with good pain control. No nausea. Starting PT. Hgb had only a mild drop. Objective Vital Signs Date Time Temp Pulse Resp B/P Pulse Ox O2 Delivery O2 Flow Rate FiO2 09/13/16 08:15 98.6 73 16 108/52 97 09/13/16 04:50 99.0 70 16 109/58 98 09/13/16 00:45 98.6 64 16 112/55 100 09/12/16 20:44 96.9 66 16 100/55 98 09/12/16 17:56 92 Nasal Cannula 2.00 09/12/16 15:25 95.7 80 17 116/62 92 09/12/16 14:35 97.5 68 16 124/76 96 Nasal Cannula 2 09/12/16 14:00 70 16 121/64 96 Nasal Cannula 2 09/12/16 13:30 75 15 120/68 96 Nasal Cannula 2 09/12/16 13:00 97.5 74 15 118/65 95 Nasal Cannula 2 09/12/16 12:45 78 15 119/66 95 Nasal Cannula 2 09/12/16 12:40 14 09/12/16 12:30 86 14 126/60 100 Nasal Cannula 3 09/12/16 12:15 80 14 124/56 99 Nasal Cannula 3 09/12/16 12:14 14 09/12/16 12:00 79 13 117/58 98 Nasal Cannula 3 09/12/16 11:45 78 13 129/61 98 Nasal Cannula 3 09/12/16 11:35 97.6 85 12 132/66 100 Nasal Cannula 4 I/O 09/12/16 09/12/16 09/12/16 09/13/16 09/13/16 09/13/16 07:00 15:00 23:00 07:00 15:00 23:00 Intake Total 504 ml 1350 ml 360 ml 120 ml Output Total 1150 ml 1925 ml 820 ml 320 ml Balance -646 ml -575 ml -460 ml -200 ml Intake Oral 0 ml 360 ml 120 ml IV Total 504 ml 150 ml Other 1200 ml Output Urine Total 1150 ml 1750 ml 800 ml 300 ml Drainage Total 25 ml 20 ml 20 ml Estimated Blood Loss 150 ml # Bowel Movements 0 0 Result Diagram: 09/13/16 0652 09/13/16 0652 Objective Remarks GENERAL: NAD, Sedated (a&ox2) SKIN: Warm and dry. HEAD: Normocephalic. EYES: No scleral icterus. No injection or drainage. NECK: Supple, trachea midline. No JVD or lymphadenopathy. CARDIOVASCULAR: Regular rate and rhythm without murmurs, gallops, or rubs. RESPIRATORY: Breath sounds equal bilaterally. No accessory muscle use. GASTROINTESTINAL: Abdomen soft, non-tender, nondistended. MUSCULOSKELETAL: No cyanosis, or edema. Left leg bandaged at hip. BACK: Nontender without obvious deformity. No CVA tenderness. Medications and IVs Administered Medications Medications (Trade) Dose Ordered Sig/Danielle Route PRN Reason Start Time Stop Time Status Last Admin Dose Admin Montelukast Sodium 5 mg 5 mg HS CHEW 09/12/16 21:00 09/12/16 19:54 Sodium Chloride (NS 1000 ml Inj) 1,000 ml @ 84 mls/hr [id number] IV 09/12/16 00:45 09/13/16 01:24 Enoxaparin Sodium (Lovenox Inj) 30 mg Q24H SQ 09/13/16 10:00 09/13/16 09:15 Acetaminophen/ Hydrocodone Bitart ([place] 7.5-325 Mg) 2 tab Q4H PRN PO PAIN SCALE 5 TO 10 09/12/16 10:15 09/13/16 09:14 Cholecalciferol (Vitamin D3) 5,000 units DAILY PO 09/13/16 09:00 09/13/16 09:13 Hydromorphone HCl (Dilaudid Pf Inj) 0.2 mg Q4H PRN IV PAIN SCALE 6 TO 10 09/12/16 13:00 09/13/16 05:54 A/P Problem List: (1) Closed left hip fracture ICD Code: S72.002A Assessment & Plan: Post op PRN pain treatments Ortho following PT continued SNF vs. HH at discharge (2) COPD (chronic obstructive pulmonary disease) ICD Code: J44.9 Assessment & Plan: Stable Follow clinically No signs of exacerbation Problem Qualifiers (1) Closed left hip fracture: Qualified Code: S72.002A - Closed left hip fracture, initial encounter Naveed Erwin MD September 13, 2016 10:58
[2016-09-13] MEDS: ONDANSETRON HCL 4 MG/2 ML VIAL IV PRN (13:16)
[2016-09-13] MEDS: MONTELUKAST SODIUM 5 MG CHEWABLE TAB CHEW SCH (21:10)
[2016-09-14 00:10] VITALS: BP 97/52; PULSE 87; RESP 16; TEMP 99.1; O2SAT 94
[2016-09-14] MEDS: ACETAMINOPHEN/HYDROcodone 325 MG/7.5 MG TAB PO PRN ×4 (00:12→16:14)
[2016-09-14] MEDS: SODIUM CHLOR 0.9% 1000 ML INJ 1,000 ML IV SCH ×2 (00:12→12:20)
[2016-09-14] MEDS ORDERED: MAGNESIUM HYDROXIDE SUSP 30 ML CUP PO PRN (03:00)
[2016-09-14] MEDS ORDERED: DOCUSATE SODIUM 50 MG/SENNA 8.6 MG TAB PO PRN (03:00)
[2016-09-14] MEDS ORDERED: BISACODYL 10 MG SUPP RECTAL PRN (03:00)
--- NOTE | 2016-09-14 06:29 | PD.ORT.PN ---
Subjective Subjective Remarks Resting comfortably Objective Vitals Vital Signs Date Time Temp Pulse Resp B/P Pulse Ox O2 Delivery O2 Flow Rate FiO2 09/14/16 00:10 99.1 87 16 97/52 94 09/13/16 20:25 98.9 75 16 92/57 95 09/13/16 16:30 97.8 60 18 98/44 95 09/13/16 12:25 97.9 70 16 112/50 98 09/13/16 11:02 97 Nasal Cannula 2.00 09/13/16 10:14 16 09/13/16 08:15 98.6 73 16 108/52 97 I/O 09/13/16 09/13/16 09/13/16 09/14/16 09/14/16 09/14/16 07:00 15:00 23:00 07:00 15:00 23:00 Intake Total 120 ml 1060 ml 240 ml Output Total 320 ml 420 ml 15 ml 10 ml Balance -200 ml 640 ml 225 ml -10 ml Intake Oral 120 ml 1060 ml 240 ml Output Urine Total 300 ml 400 ml Drainage Total 20 ml 20 ml 15 ml 10 ml # Voids 1 # Bowel Movements 0 0 Result Diagram: 09/13/16 0652 09/13/16 0652 Imaging Last 24 hours Impressions Hip and Pelvis X-Ray 09/11/162117 Signed Impressions: Service Date/Time: Sunday, September 11, 2016 21:32 - CONCLUSION: Mildly displaced, comminuted and impacted subcapital fracture of the left femoral neck. Ravinder Boone MD Femur X-Ray 09/11/162117 Signed Impressions: Service Date/Time: Sunday, September 11, 2016 21:36 - CONCLUSION: Subcapital fracture of the left femur with mild impaction and lateral displacement. The remainder of the left femur is intact. Ravinder Boone MD Chest X-Ray 09/11/162117 Signed Impressions: Service Date/Time: Sunday, September 11, 2016 21:32 - CONCLUSION: No acute cardiopulmonary disease demonstrated. Ravinder Boone MD Objective Remarks Left lower extremity: Clean dry dressings intact. Compartments soft. MARYLU hose in place. Distally neurovascularly intact Assessment & Plan Assessment and Plan Left hip hemiarthroplasty POD 2 Physical therapy weightbearing as tolerated twice a day with posterior hip precautions Knee immobilizer when in bed Daily dressing changes- primapore Eliquis Case management for rehabilitation - ortho cleared Incentive spirometry Follow up with [facility] in 2 weeks Zay Antoine Jr. September 14, 2016 06:29
[2016-09-14 08:00] VITALS: BP 97/51; PULSE 75; RESP 16; TEMP 99.2; O2SAT 92
[2016-09-14] MEDS ORDERED: COLA100C3 PO (09:04)
--- NOTE | 2016-09-14 09:08 | HHI.DS ---
Discharge Summary Admission Date September 11, 2016 at 23:07 Discharge Date: September 14, 2016 Admitting Diagnosis Left hip subcapital femoral neck fx s/p fall (1) Closed left hip fracture ICD Code: S72.002A Diagnosis: Principal Procedures left hip fracture repair Brief History - From Admission History and patient, ER physician for medication, and review of medical records. Patient reported that she was walking on a limited floor and fell onto her left hip. She denies any premonitory symptoms prior to the fall such as chest pain/ palpitations/dizziness/focal weakness. She denies hitting her head. Denies loss of consciousness. Denies being on blood thinners. She does not remember the last time she had a fall. She usually doesn't fall at all. In the emergency room, patient's imaging studies revealed left femoral neck fracture. Patient denies any recent fevers/nausea/vomiting/diarrhea. Denies any hematemesis/hematochezia/melena/hematuria. She denies any significant medical history apart from COPD/restrictive lung disease and history of uterine cancer which has become recurrent with ongoing treatment. Has been in remission for past 1 year. CBC/BMP: 09/13/16 0652 09/13/16 0652 Significant Findings Laboratory Tests Test 09/11/16 09/11/16 09/11/16 09/12/16 22:00 22:10 23:20 04:29 Chloride Level 109 MEQ/L (98-107) Blood Urea Nitrogen 28 MG/DL (7-18) Creatinine 1.04 MG/DL (0.50-1.00) Calcium Level 8.4 MG/DL 8.0 MG/DL (8.5-10.1) (8.5-10.1) Estimat Glomerular Filtration 54 ML/MIN (>89) 78 ML/MIN (>89) Rate Troponin I LESS THAN 0.02 NG/ML (0.02-0.05) Urine Bacteria RARE /hpf (NONE) Urine Mucus FEW /lpf (OCC) Neutrophils (%) (Auto) 76.0 % (16.0-70.0) 25-Hydroxy Vitamin D Total 27.5 ng/ML (30-100) Test 09/13/16 06:52 Hemoglobin 11.5 GM/DL (11.6-15.3) Chloride Level 108 MEQ/L (98-107) Calcium Level 8.1 MG/DL (8.5-10.1) Imaging Last Impressions Hip and Pelvis X-Ray 09/12/16 1001 Signed Impressions: Service Date/Time: Monday, September 12, 2016 13:04 - CONCLUSION: 1. Status post left hip replacement with prosthesis in good position. 2. Stable arthritic changes involving the right hip. 3. No acute fracture or dislocation. Morgan High MD Femur X-Ray 09/11/162117 Signed Impressions: Service Date/Time: Sunday, September 11, 2016 21:36 - CONCLUSION: Subcapital fracture of the left femur with mild impaction and lateral displacement. The remainder of the left femur is intact. Ravinder Boone MD Chest X-Ray 09/11/162117 Signed Impressions: Service Date/Time: Sunday, September 11, 2016 21:32 - CONCLUSION: No acute cardiopulmonary disease demonstrated. Ravinder Boone MD PE at Discharge GENERAL: NAD, A&Ox3 SKIN: Warm and dry. HEAD: Normocephalic. EYES: No scleral icterus. No injection or drainage. NECK: Supple, trachea midline. No JVD or lymphadenopathy. CARDIOVASCULAR: Regular rate and rhythm without murmurs, gallops, or rubs. RESPIRATORY: Breath sounds equal bilaterally. No accessory muscle use. GASTROINTESTINAL: Abdomen soft, non-tender, nondistended. MUSCULOSKELETAL: No cyanosis, or edema. Limited ROM at left hip (post op) BACK: Nontender without obvious deformity. No CVA tenderness. Pt update on day of discharge Doing well. Not yet independent. Cleared by ortho for discharge to SNF. Hospital Course Mrs. Rodriguez is a 60 year old female. Baseline medical condition of COPD, well controlled. She is here for a left sided hip fracture. The fracture was repaired and she is cooperating well with PT. Ortho has cleared her for discharge to SNF today and she is medically stable and clear for discharge today. Pt Condition on Discharge: Stable Discharge Disposition: Discharge to SNF Discharge Time: > 30 minutes Discharge Instructions DIET: Follow Instructions for: As Tolerated, No Restrictions Activities you can perform: Regular-No Restrictions Follow up Referrals: Orthopedics - 2 Weeks @ [facility] with Andi Burton MD New Medications: Calcium Carbonate-Cholecalciferol (Calcium 600+D) 600-800 Mg-Unit Tab 1 TAB PO BID Calcium Supplement #60 Ref 2 TAB Docusate Sodium (Colace) 100 Mg Cap 100 MG PO BID PRN Constipation #60 Ref 0 CAP Ergocalciferol (Ergocalciferol) 50,000 Unit Cap 84641 UNITS PO Q7D Nutritional Supplement #7 Ref 0 CAP Hydrocodone-Acetaminophen ([place]) 7.5-325 mg Tab 1 TAB PO Q4H PRN PAIN #60 Ref 0 TAB Rivaroxaban (Xarelto) 10 Mg Tab 10 MG PO DAILY Blood Clot Prevention #14 Ref 0 TAB Walker with Front Wheels (Walker with Front Wheels) 1 Mis Mis 1 EA .ROUTE DIRECTED #1 Ref 0 EA Continued Medications: Yhwmcin-Obxbvwsfmg-Wdhhnux D (Calcium Gummies) 250-100-500 Mg-Unit Chew 2 EA CHEW HS TAB Cyanocobalamin Inj (Cyanocobalamin Inj) 1,000 Mcg/Ml Inj 1000 MCG SQ Q30D #1 Ref 0 VIAL Ergocalciferol (Drisdol) 50,000 Unit Cap 16400 UNITS PO Q7D ON SUNDAYS Nutritional Supplement #30 Ref 0 CAP Ipratropium-Albuterol Neb (Duoneb) 0.5-2.5 Mg/3 Ml Neb 1 NEBULE INH Q4HR NEB PRN SHORTNESS OF BREATH #120 Ref 0 NEBULE Montelukast (Montelukast) 5 Mg Chew 5 MG CHEW HS #30 Ref 0 TAB ([Vitamelts Multi]) 2 TAB SL BID Naveed Erwin MD September 14, 2016 09:08
[2016-09-14] MEDS: ENOXAPARIN SODIUM 30 MG/0.3 ML SYRINGE SQ SCH (10:33)
[2016-09-14] MEDS: CHOLECALCIFEROL (VIT D3) 5000 UNIT CAP PO SCH (10:33)
[2016-09-14] MEDS: SODIUM CHLORIDE 0.9% FLUSH 5 ML FLUSH IVF SCH (10:34)
[2016-09-14 12:00] VITALS: BP 109/60; PULSE 70; RESP 16; TEMP 98.6; O2SAT 92
[2016-09-14 13:19] VITALS: RESP 17
[2016-09-14] MEDS: ONDANSETRON HCL 4 MG/2 ML VIAL IV PRN (16:22)
[2016-09-20] MEDS ORDERED: GETGO ROLLING W1 MI1 (09:15)
[2016-09-20] MEDS ORDERED: COMMODE 3-IN-11 MIS (09:15)
[2016-09-21] MEDS ORDERED: MONT5CHW5 CHEW (11:22)
[2016-09-21] MEDS ORDERED: CALC1TAB37 PO (11:23)
[2016-09-21] MEDS ORDERED: XARE10TA PO (11:23)
[2016-09-21] MEDS ORDERED: ERGO1CAP30 PO (11:23)
[2016-09-21] MEDS ORDERED: ULTR50TA5 PO (11:23)
[2016-09-21] MEDS ORDERED: ONDA4TAB7 PO (11:23)
[2016-09-21] MEDS ORDERED: HYDR-3288 PO (11:23)
[2016-09-21] MEDS ORDERED: VENTAER INH (11:23)
[2016-09-21] MEDS ORDERED: COLA100C3 PO (11:23)
== END 2016-09-14 18:02 | DRG 470 ==
LOC: NEPE 21:10 → NEDA 23:07 → HCIS 09-12 00:36 → N06B 09-12 10:28 → N06A 09-12 15:00
PROVIDERS: ADMIT Hospitalist; ATTEND Hospitalist
PROC: 0SRB0JA Replacement of Left Hip Joint with Synthetic Substitute, Uncemented, Open Approach (ICD-10-PCS; principal; 2016-09-12 09:44)
DX: S72.012A Unspecified intracapsular fracture of left femur, initial encounter for closed fracture (principal); J98.4 Other disorders of lung; J44.9 Chronic obstructive pulmonary disease, unspecified; W19.XXXA Unspecified fall, initial encounter; Y92.009 Unspecified place in unspecified non-institutional (private) residence as the place of occurrence of the external cause; Z90.710 Acquired absence of both cervix and uterus; Z85.42 Personal history of malignant neoplasm of other parts of uterus
CPT/HCPCS: 51702; 71010; 73502; 73552; 80048; 80053; 81001; 82306; 82550; 82552; 82948; 83880; 84484; 85025; 85027; 85610; 85730; 86850; 86900; 86901; 87641; 88305; 88311; 93005; 96374; 96375; C1713; C1776; J0131; J1170; J1580; J1650; J2270; J2405; J2710; J3010; J3370; J7030; J7040; J7050; J7120; L1830

== ENCOUNTER 2017-06-26 17:27 | Emergency (ER) | payer MEDICARE, OTHER ==
[~2017-06-26] VITALS: Ht 172.7 cm; Wt 73.0 kg
[~2017-06-26 17:27] MED LIST changes: +CALC1TAB37 PO; +COLA100C3 PO; +COMMODE 3-IN-11 MIS; +CYAN1000P SQ; +GETGO ROLLING W1 MI1; +HYDR-3288 PO; -IBUP800T23 PO; +MONT5CHW5 CHEW; +ONDA4TAB7 PO; +TRAM50 PO; +VENTAER INH; +VITA500012 PO; +WALKER WHEELS/F1 MIS; +XARE10TA PO; +[UNRECOGNIZED DRUG - OTHER] SL
[2017-06-26 17:30] VITALS: BP 134/65; PULSE 79; RESP 17
[2017-06-26] MEDS ORDERED: SODI3NEB NEB (17:43)
[2017-06-26] MEDS ORDERED: ONDANSETRON HCL 4 MG/2 ML VIAL IVP ONE (17:45)
[2017-06-26] MEDS ORDERED: SODIUM CHLORIDE 0.9% FLUSH 10 ML FLUSH IVF PRN (17:45)
[2017-06-26] MEDS ORDERED: HYDROmorphone HCL PF 1 MG/ML VIAL IVS ONE (17:45)
--- NOTE | 2017-06-26 18:00 | PD ---
HPI Chief Complaint: Headache Time Seen by Provider: 17:39 Travel History International Travel<30 days: No Contact w/Intl Traveler<30days: No Traveled to known affect area: No History of Present Illness HPI The patient was seen and examined in the presence of the nurse. This patient presents via [facility]. She complains of headache. She has a pounding throbbing frontal headache. Duration 1 hour. No thunderclap onset. She says she gets about 2 headaches per year and has no formal diagnosis of headache disease or migraines. She has nausea without vomiting or fever. No injury. Symptoms are moderately severe. No alleviating factors. Light seems to exacerbate her headache. No neck pain or stiffness. She's not having muscle weakness or sensory loss or speech slurring or confusion. PFSH Past Medical History Arthritis: Yes (FINGERS) Asthma: Yes Autoimmune Disease: No Cardiovascular Problems: No Chemotherapy: No COPD: Yes Diminished Hearing: No Endocrine: No Genitourinary: No Immune Disorder: No Implanted Vascular Access Dvce: Yes Musculoskeletal: Yes Neurologic: No Psychiatric: No Reproductive: Yes Respiratory: Yes (COPD) Migraines: Yes Radiation Therapy: Yes Tetanus Vaccination: > 5 Years Influenza Vaccination: No ?: Not Past Surgical History Abdominal Surgery: No AICD: No Appendectomy: Yes Arteriovenous Shunt: No Cardiac Surgery: No Section: Yes Cholecystectomy: Yes Ear Surgery: No Endocrine Surgery: No Eye Surgery: No Genitourinary Surgery: No Gynecologic Surgery: Yes Hysterectomy: Yes Insulin Pump: No Joint Replacement: Yes (left hip) Oral Surgery: No Pacemaker: No Thoracic Surgery: No Other Surgery: Yes Social History Alcohol Use: No Tobacco Use: No Substance Use: No Allergies-Medications (Allergen,Severity, Reaction): Coded Allergies: morphine (Unverified Allergy, Severe, cardiac arrest, 12/27/16) penicillin G (Unverified Allergy, Intermediate, asthma attack, hives, 12/27) aspirin (Unverified Allergy, Mild, hives, 12/27/16) iodine (Unverified Allergy, Mild, rash, 12/27/16) potassium iodide (Unverified Allergy, Mild, rash, 12/27/16) povidone-iodine (Unverified Allergy, Mild, rash, 12/27/16) sodium iodide (Unverified Allergy, Mild, rash, 12/27/16) sodium iodide (Unverified Allergy, Mild, rash, 12/27/16) *MDRO Multi-Drug Resistant Organism (Verified Adverse Reaction, Unknown, ) 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/13/2016 Reported Meds & Prescriptions Reported Meds & Active Scripts Active Ventolin Hfa 18 GM Inh (Albuterol Sulfate) 90 Mcg/Act Aer 2 Puff INH Q4-6H PRN Calcium 600+D (Calcium Carbonate-Cholecalciferol) 600-800 Mg-Unit Tab 1 Tab PO BID Montelukast (Montelukast Sodium) 5 Mg Chew 5 Mg CHEW HS Commode 3-in-1 (Device) 1 Mis Mis 1 Ea .ROUTE DIRECTED Walker Rolling/GetGo (Device) 1 Mis Mis 1 Ea .ROUTE DIRECTED Walker with Front Wheels (Device) 1 Mis Mis 1 Ea .ROUTE DIRECTED Reported Nebusal Neb (Sodium Chloride) 3 % Neb 2 Ml NEB Q6HR NEB Review of Systems General / Constitutional: No: Fever Eyes: No: Visual changes HENT: Positive: Headaches Cardiovascular: No: Chest Pain or Discomfort Respiratory: No: Shortness of Breath Gastrointestinal: Positive: Nausea, No: Abdominal Pain Genitourinary: No: Dysuria Musculoskeletal: No: Pain Skin: No Rash Neurologic: Positive: Headache, No: Weakness Psychiatric: No: Depression Endocrine: No: Polydipsia Hematologic/Lymphatic: No: Easy Bruising Physical Exam Narrative GENERAL: Well-nourished, well-developed patient with headache . SKIN: Focused skin assessment reveals no rash and nodules. Skin is Warm and dry. HEAD: Atraumatic. Normocephalic. EYES: Pupils equal and round. No scleral icterus. No injection or drainage. ENT: No nasal bleeding or discharge. Mucous membranes pink and moist. NECK: Trachea midline. No JVD. No meningeal signs CARDIOVASCULAR: Regular rate and rhythm. No murmur appreciated. RESPIRATORY: No accessory muscle use. Clear to auscultation. Breath sounds equal bilaterally. GASTROINTESTINAL: Abdomen soft, non-tender, nondistended. Hepatic and splenic margins not palpable. MUSCULOSKELETAL: No obvious deformities. No clubbing. No cyanosis. No edema. NEUROLOGICAL: Awake and alert. No obvious cranial nerve deficits. Motor grossly within normal limits. Normal speech. Sensation intact PSYCHIATRIC: Appropriate mood and affect; insight and judgment normal. Data Data Last Documented VS Vital Signs Date Time Temp Pulse Resp B/P (MAP) Pulse Ox O2 Delivery O2 Flow Rate FiO2 06/26/17 17:30 79 17 134/65 (88) Orders Orders Prothrombin Time / Inr (Pt) (06/26/17 17:40) Act Partial Throm Time (Ptt) (06/26/17 17:40) Complete Blood Count With Diff (06/26/17 17:40) Basic Metabolic Panel (Bmp) (06/26/17 17:40) Ct Brain W/O Iv Contrast(Rout) (06/26/17 17:40) Ecg Monitoring (06/26/17 17:40) Iv Access Insert/Monitor (06/26/17 17:40) Oximetry (06/26/17 17:40) Ondansetron Inj (Zofran Inj) (06/26/17 17:45) Sodium Chloride 0.9% Flush (Ns Flush) (06/26/17 17:45) Westergren Sedimentation Rate (06/26/17 18:00) Hydromorphone Pf Inj (Dilaudid Pf Inj) (06/26/17 18:45) Labs Laboratory Tests Test 06/26/17 17:51 White Blood Count 7.6 TH/MM3 Red Blood Count 4.73 MIL/MM3 Hemoglobin 13.4 GM/DL Hematocrit 39.2 % Mean Corpuscular Volume 82.9 FL Mean Corpuscular Hemoglobin 28.4 PG Mean Corpuscular Hemoglobin Concent 34.3 % Red Cell Distribution Width 13.8 % Platelet Count 343 TH/MM3 Mean Platelet Volume 7.4 FL Neutrophils (%) (Auto) 57.4 % Lymphocytes (%) (Auto) 34.3 % Monocytes (%) (Auto) 6.7 % Eosinophils (%) (Auto) 0.8 % Basophils (%) (Auto) 0.8 % Neutrophils # (Auto) 4.4 TH/MM3 Lymphocytes # (Auto) 2.6 TH/MM3 Monocytes # (Auto) 0.5 TH/MM3 Eosinophils # (Auto) 0.1 TH/MM3 Basophils # (Auto) 0.1 TH/MM3 CBC Comment DIFF FINAL Differential Comment Prothrombin Time 10.5 SEC Prothromb Time International Ratio 1.0 RATIO Activated Partial Thromboplast Time 25.9 SEC Blood Urea Nitrogen 21 MG/DL Creatinine 0.85 MG/DL Random Glucose 79 MG/DL Calcium Level 8.8 MG/DL Sodium Level 143 MEQ/L Potassium Level 3.7 MEQ/L Chloride Level 107 MEQ/L Carbon Dioxide Level 29.2 MEQ/L Anion Gap 7 MEQ/L Estimat Glomerular Filtration Rate 68 ML/MIN MDM Medical Decision Making Medical Screen Exam Complete: Yes Emergency Medical Condition: Yes Medical Record Reviewed: Yes Differential Diagnosis Differential diagnosis includes migraine, tension headache, cluster headache, meningitis. Narrative Course I have reviewed the patient's electronic medical record. Patient is neurologically intact to objective exam No evidence of CVA She is not a stroke alert I've ordered brain CT and labs I gave her dose of pain and nausea medication CBC metabolic profiles are normal On recheck at 652 she feels improved Awaiting radiologist's reading and sedimentation rate to come back and likely she can be discharged if these are normal Diagnosis Primary Impression: Head ache Qualified Codes: R51 - Headache Additional Impression: Nausea Kosta Canchola MD Jun 26, 2017 18:00
[2017-06-26 18:12] LABS: AUTOMATED NEUTROPHIL # 4.4 TH/MM3 (1.8-7.7); BASOPHIL # 0.1 TH/MM3 (0-0.2); BASOPHIL % 0.8 % (0.0-2.0); EOSINOPHIL # 0.1 TH/MM3 (0-0.4); EOSINOPHIL % 0.8 % (0.0-4.0); HEMATOCRIT 39.2 % (35.0-46.0); HEMOGLOBIN 13.4 GM/DL (11.6-15.3); LYMPH % 34.3 % (9.0-44.0); LYMPHOCYTE # 2.6 TH/MM3 (1.0-4.8); MEAN CELL VOLUME 82.9 FL (80.0-100.0); MEAN CORPUSCULAR HEMOGLOBIN 28.4 PG (27.0-34.0); MEAN CORPUSCULAR HGB CONC 34.3 % (32.0-36.0); MEAN PLATELET VOLUME 7.4 FL (7.0-11.0); MONO % 6.7 % (0.0-8.0); MONOCYTE # 0.5 TH/MM3 (0-0.9); NEUT % 57.4 % (16.0-70.0); PLATELET COUNT 343 TH/MM3 (150-450); RED BLOOD COUNT 4.73 MIL/MM3 (4.00-5.30); RED CELL DISTRIBUTION WIDTH 13.8 % (11.6-17.2); WHITE BLOOD COUNT 7.6 TH/MM3 (4.0-11.0)
[2017-06-26 18:23] LABS: PROTHROMBIN TIME - PATIENT 10.5 SEC (9.8-11.6)
[2017-06-26 18:35] LABS: BICARBONATE 29.2 MEQ/L (21.0-32.0); CALCIUM 8.8 MG/DL (8.5-10.1); CREATININE 0.85 MG/DL (0.50-1.00)
[2017-06-26] MEDS ORDERED: HYDROmorphone HCL PF 2 MG/ML VIAL IV ONE (18:45)
--- NOTE | 2017-06-26 18:57 | RADRPT ---
EXAM DATE/TIME: 06/26/2017 18:42 [facility] COMPARISON: No previous studies available for comparison. INDICATIONS : Cephalgia. RADIATION DOSE: 34.94 CTDIvol (mGy) MEDICAL HISTORY : Carcinoma, not otherwise specified. Chronic obstructive pulmonary disease. SURGICAL HISTORY : Hysterectomy. ENCOUNTER: Initial ACUITY: 1 day PAIN SCALE: 7/10 LOCATION: cranial TECHNIQUE: Multiple contiguous axial images were obtained of the head. Using automated exposure control and adj ustment of the mA and/or kV according to patient size, radiation dose was kept as low as reasonably a chievable to obtain optimal diagnostic quality images. DICOM format image data is available electro nically for review and comparison. FINDINGS: CEREBRUM: The ventricles are normal for age. No evidence of midline shift, mass lesion, hemorrhage or acute in farction. No extra-axial fluid collections are seen. POSTERIOR FOSSA: The cerebellum and brainstem are intact. The 4th ventricle is midline. The cerebellopontine angle i s unremarkable. EXTRACRANIAL: The visualized portion of the orbits is intact. SKULL: The calvaria is intact. No evidence of skull fracture. CONCLUSION: 1. No acute intracranial abnormalities. Alfredo May MD on June 26, 2017 at 18:53 Board Certified Radiologist. This report was verified electronically.
[2017-06-26 19:25] VITALS: BP 131/69; PULSE 65
[2017-06-26] MEDS ORDERED: METOCLOPRAMIDE HCL 10 MG/2 ML VIAL IV PUSH ONE (20:00)
[2017-06-26] MEDS ORDERED: REGL10TA5 PO (20:46)
[2017-06-26] MEDS ORDERED: BUTA1CAP PO (20:46)
--- NOTE | 2017-06-26 20:47 | PD ---
Physical Exam Narrative Patient's anatomy at shift change pending sedimentation rate and CAT scan results. CAT scan read as negative per radiology. Sedimentation rate 14. Patient interviewed, patient has history of headaches before with similar symptoms including photophobia and change position of headache. Denies headaches are bifrontal now is left frontal. Patient had minimal improvement with Dilaudid IV. Patient was given Reglan 10 mg IV push with near complete resolution of her headache. Patient will be discharged on Reglan 10 mg by mouth 3 times a day when necessary sparingly, and Fioricet one tablet every 4-6 hours as needed for more severe headache. Data Data Last Documented VS Vital Signs Date Time Temp Pulse Resp B/P (MAP) Pulse Ox O2 Delivery O2 Flow Rate FiO2 06/26/17 19:25 65 131/69 (89) 06/26/17 17:30 17 Orders Orders Prothrombin Time / Inr (Pt) (06/26/17 17:40) Act Partial Throm Time (Ptt) (06/26/17 17:40) Complete Blood Count With Diff (06/26/17 17:40) Basic Metabolic Panel (Bmp) (06/26/17 17:40) Ct Brain W/O Iv Contrast(Rout) (06/26/17 17:40) Ecg Monitoring (06/26/17 17:40) Iv Access Insert/Monitor (06/26/17 17:40) Oximetry (06/26/17 17:40) Ondansetron Inj (Zofran Inj) (06/26/17 17:45) Sodium Chloride 0.9% Flush (Ns Flush) (06/26/17 17:45) Westergren Sedimentation Rate (06/26/17 18:00) Hydromorphone Pf Inj (Dilaudid Pf Inj) (06/26/17 18:45) Metoclopramide Inj (Reglan Inj) (06/26/17 20:00) Labs Laboratory Tests Test 06/26/17 17:51 White Blood Count 7.6 TH/MM3 Red Blood Count 4.73 MIL/MM3 Hemoglobin 13.4 GM/DL Hematocrit 39.2 % Mean Corpuscular Volume 82.9 FL Mean Corpuscular Hemoglobin 28.4 PG Mean Corpuscular Hemoglobin Concent 34.3 % Red Cell Distribution Width 13.8 % Platelet Count 343 TH/MM3 Mean Platelet Volume 7.4 FL Neutrophils (%) (Auto) 57.4 % Lymphocytes (%) (Auto) 34.3 % Monocytes (%) (Auto) 6.7 % Eosinophils (%) (Auto) 0.8 % Basophils (%) (Auto) 0.8 % Neutrophils # (Auto) 4.4 TH/MM3 Lymphocytes # (Auto) 2.6 TH/MM3 Monocytes # (Auto) 0.5 TH/MM3 Eosinophils # (Auto) 0.1 TH/MM3 Basophils # (Auto) 0.1 TH/MM3 CBC Comment DIFF FINAL Differential Comment Erythrocyte Sedimentation Rate 14 mm/hr Prothrombin Time 10.5 SEC Prothromb Time International Ratio 1.0 RATIO Activated Partial Thromboplast Time 25.9 SEC Blood Urea Nitrogen 21 MG/DL Creatinine 0.85 MG/DL Random Glucose 79 MG/DL Calcium Level 8.8 MG/DL Sodium Level 143 MEQ/L Potassium Level 3.7 MEQ/L Chloride Level 107 MEQ/L Carbon Dioxide Level 29.2 MEQ/L Anion Gap 7 MEQ/L Estimat Glomerular Filtration Rate 68 ML/MIN MDM Medical Record Reviewed: Yes Supervised Visit with JASON: Yes Differential Diagnosis Headache, frontal headache, temporal arteritis, migraine headache, tension headache Narrative Course see narrative above Diagnosis Primary Impression: Head ache Qualified Codes: R51 - Headache Additional Impressions: Nausea Migraine headache Qualified Codes: G43.009 - Migraine without aura, not intractable, without status migrainosus Patient Instructions: General Instructions, Migraine Headache (ED) Additional Instruction: Reglan 10 mg by mouth 3 times a day when necessary sparingly, and Fioricet one tablet every 4-6 hours as needed for more severe headache. Follow-up with your doctor. Recommend referral to headache specialist if symptoms frequently recur or persist. Return for worsening Scripts Fpcqbrryot-Walitahxocjzp-Fobxpfrv (Fioricet) 50-300-40 Mg Cap 1 CAP PO Q4H Y for HEADACHE, #20 CAP 0 Refills Prov: Paulie Comer MD 06/26/17 Metoclopramide (Reglan) 10 Mg Tab 10 MG PO TID Y for MIGRAINE HEADACHE, #15 TAB 0 Refills Prov: Paulie Comer MD 06/26/17 Disposition: 01 DISCHARGE HOME Condition: Stable Paulie Comer MD Jun 26, 2017 20:47
== END 2017-06-26 21:11 | disposition home or self-care (01) ==
LOC: NEPC 17:27
DX: R51 Headache (principal); R11.0 Nausea; G43.009 Migraine without aura, not intractable, without status migrainosus; J45.909 Unspecified asthma, uncomplicated; J44.9 Chronic obstructive pulmonary disease, unspecified; Z88.4 Allergy status to anesthetic agent; Z88.5 Allergy status to narcotic agent; Z88.0 Allergy status to penicillin; Z88.8 Allergy status to other drugs, medicaments and biological substances
CPT/HCPCS: 70450; 80048; 85025; 85610; 85652; 85730; 96374; 96375; 99284; J1170; J2405; J2765